=== PATIENT | female | born 1975 | race Caucasian/White ===

== ENCOUNTER → 2017-02-22 | Outpatient (CLI) | payer OTHER ==
[~2017-02-22] MED LIST: PROBIOTIC1 EACH
== END ==
LOC: MRI 07:02
DX: S89.90XA Unspecified injury of unspecified lower leg, initial encounter (principal); R20.0 Anesthesia of skin; X58.XXXA Exposure to other specified factors, initial encounter; Y93.89 Activity, other specified; Y92.89 Other specified places as the place of occurrence of the external cause; Y99.8 Other external cause status

== ENCOUNTER 2019-01-04 14:18 | Emergency (ER) | payer OTHER ==
[~2019-01-04] VITALS: Ht 162.6 cm; Wt 79.4 kg
[2019-01-04] MEDS ORDERED: PEPCID20 MG PO (14:39)
[2019-01-04] MEDS ORDERED: DEXILANT60 MG PO (14:40)
[2019-01-04] MEDS ORDERED: PREDNISONE 20 M20 MG PO (15:26)
[2019-01-04 15:41] VITALS: BP 116/63
== END 2019-01-04 15:42 | disposition home or self-care (01) ==
LOC: ER 14:18
DX: L29.9 Pruritus, unspecified (principal); F17.200 Nicotine dependence, unspecified, uncomplicated; Z88.8 Allergy status to other drugs, medicaments and biological substances; Z90.710 Acquired absence of both cervix and uterus

== ENCOUNTER → 2019-01-20 | Outpatient (CLI) | payer OTHER ==
[~2019-01-20] MED LIST changes: +DEXILANT60 MG PO; +PEPCID20 MG PO; +PREDNISONE 20 M20 MG PO
== END ==
LOC: CAT 14:19
DX: J01.00 Acute maxillary sinusitis, unspecified (principal); J34.2 Deviated nasal septum; Z88.1 Allergy status to other antibiotic agents

== ENCOUNTER → 2019-02-09 | Outpatient (CLI) | payer OTHER | LOC: CAT 10:05 | DX: Z13.6 Encounter for screening for cardiovascular disorders (principal); E78.00 Pure hypercholesterolemia, unspecified; I25.10 Atherosclerotic heart disease of native coronary artery without angina pectoris ==